=== PATIENT | female | born 1945 | race Hispanic/Latino ===

== ENCOUNTER 2017-12-15 06:09 | Observation (INO) | payer MEDICARE ==
[2017-12-10 12:57] VITALS: BP 149/74
[2017-12-10 13:14] LABS: BASOPHILS % (AUTO) 0.3 % (0.0-5.0); CREATININE 0.7 mg/dL (0.5-1.5); EOSINOPHILS % (AUTO) 1.6 % (0.0-8.0); HEMATOCRIT 41.9 % (36-48); LYMPHOCYTES % (AUTO) 41.9 % (21.0-51.0); MEAN CORPUSCULAR VOLUME 88.4 fL (79-99); MONOCYTES % (AUTO) 6.6 % (3.0-13.0); NEUTROPHILS % (AUTO) 49.6 % (40.0-77.0); PLATELET COUNT (AUTO) 348 K/uL (130-400); POTASSIUM 4.4 mmol/L (3.5-5.1); RED BLOOD CELL COUNT(AUTO) 4.74 MIL/uL (4.00-5.50); RED CELL DISTRIBUTION WIDTH 13.1 % (11.0-15.5); WHITE BLOOD COUNT (AUTO) 9.5 K/uL (4.8-10.8)
[2017-12-15] VITALS (23 sets, daily range): BP systolic 109–161; BP diastolic 60–97
[~2017-12-15] VITALS: Ht 152.4 cm; Wt 69.9 kg
[2017-12-15] MEDS: CEFAZOLIN SODIUM 1 GM VIAL IVP SCH ×2 (05:00→08:30)
[2017-12-15] MEDS ORDERED: MIDAZOLAM HCL 1 MG/ML 2ML VIAL ONE (06:28)
[2017-12-15] MEDS ORDERED: GLYCOPYRROLATE 0.2 MG/ML 5 ML VIAL ONE ×2 (06:28→10:08)
[2017-12-15] MEDS ORDERED: PROPOFOL 10 MG/ML 20ML VIAL IV ONE (06:28)
[2017-12-15] MEDS ORDERED: LIDOCAINE PF 2% 5ML ABBOJECT ONE (06:28)
[2017-12-15] MEDS ORDERED: DEXAMETHASONE SOD PHOSPHATE 10MG/ML 1ML VIAL ONE ×2 (06:28→10:09)
[2017-12-15] MEDS ORDERED: LACTATED RINGERS 1000ML 0 ML IV ONE (06:29)
[2017-12-15] MEDS ORDERED: FENTANYL CITRATE PF 50 MCG/1 ML 2ML VIAL ONE ×2 (06:29→09:02)
[2017-12-15] MEDS ORDERED: SODIUM CHLORIDE 0.9% 1000ML 1,000 ML IV ONE (06:30)
[2017-12-15] MEDS ORDERED: BUPIVACAINE/PF 0.25% 30ML VIAL IJ ONE (06:48)
[2017-12-15] MEDS ORDERED: DURAMORPH PF1 MG/ML 10ML AMP IV ONE (06:48)
[2017-12-15] MEDS ORDERED: EPINEPHRINE 1 MG/ML AMPULE ONE (06:48)
[2017-12-15] MEDS ORDERED: BACITRACIN 50,000 UNIT VIAL ONE (06:49)
[2017-12-15] MEDS ORDERED: THROMBIN-JMI 20000 UNIT KIT TP ONE (06:49)
[2017-12-15] MEDS ORDERED: PROP10TA10 PO (07:09)
[2017-12-15] MEDS ORDERED: JANUMET PO (07:09)
[2017-12-15] MEDS ORDERED: ROSU10TA PO (07:09)
[2017-12-15] MEDS ORDERED: SUCCINYLCHOLINE CHLORIDE 20 MG/ML 10 ML VIAL ONE (10:08)
[2017-12-15] MEDS ORDERED: ROCURONIUM BROMIDE 10MG/1ML 5ML VL ONE ×2 (10:08)
[2017-12-15] MEDS ORDERED: NEOSTIGMINE METHYLSULFATE 1MG/ML IV ONE (10:08)
[2017-12-15] MEDS ORDERED: ONDANSETRON HCL MDV 20ML 2 MG/ML VIAL ONE (10:09)
[2017-12-15] MEDS ORDERED: HYDROCODONE/ACETAMINOPHEN 5/325 MG TAB PO PRN (10:30)
[2017-12-15] MEDS ORDERED: MORPHINE SULFATE 2 MG/ML 1ML SYG IVP PRN (10:30)
[2017-12-15] MEDS: CEFAZOLIN 2GM / 50 ML 50 ML IV SCH ×2 (10:30→14:59)
[2017-12-15] MEDS ORDERED: SODIUM CHLORIDE 0.9% 10 ML VIAL IVP PRN (10:30)
[2017-12-15] MEDS ORDERED: PROMETHAZINE HCL 25 MG/ML 1ML AMPULE IM PRN (10:30)
[2017-12-15] MEDS: DEXAMETHASONE SOD PHOSPHATE 4 MG/ML 1ML VIAL IVP SCH ×3 (10:30→22:30)
[2017-12-15] MEDS ORDERED: NALOXONE HCL 0.4 MG/1 ML ML ONE (10:33)
[2017-12-15] MEDS ORDERED: MEPERIDINE-PF 25 MG/ML SYG ONE (11:06)
[2017-12-15] MEDS ORDERED: PHARMACY COMMUNICATION MISC SCH (11:45)
[2017-12-15] MEDS: LACTATED RINGERS 1000ML 1,000 ML IV SCH ×2 (12:31→20:51)
[2017-12-15] MEDS: PROPRANOLOL HCL 10 MG TAB PO SCH (20:48)
[2017-12-15] MEDS ORDERED: ATORVASTATIN CALCIUM 20 MG TABLET PO SCH (21:00)
[2017-12-15] MEDS ORDERED: JANUMET PO SCH ×2 (21:00)
[2017-12-16] VITALS: BP 120/65
[2017-12-16] MEDS: CEFAZOLIN SODIUM 1 GM VIAL IVP SCH (00:20)
[2017-12-16] MEDS: DEXAMETHASONE SOD PHOSPHATE 4 MG/ML 1ML VIAL IVP SCH (02:03)
[2017-12-16 04:00] VITALS: BP 124/58
[2017-12-16 08:10] VITALS: BP 122/57
[2017-12-16] MEDS: PROPRANOLOL HCL 10 MG TAB PO SCH (09:00)
== END 2017-12-16 11:01 | disposition home or self-care (01) ==
LOC: DAHIP 06:09 → INTOOBSV 06:09 → 4AH 11:16
PROVIDERS: ADMIT Neurological Surgery; ATTEND Neurological Surgery
PROC: 00NY0ZZ Release Lumbar Spinal Cord, Open Approach (ICD-10-PCS; principal; 2017-12-15 08:14)
DX: M48.061 Spinal stenosis, lumbar region without neurogenic claudication (principal); I10 Essential (primary) hypertension; E11.9 Type 2 diabetes mellitus without complications; Z79.899 Other long term (current) drug therapy
CPT/HCPCS: 36415; 63047; 63048; 71045; 72020; 80048; 82948 ×5; 85025; 96365; 96375; 96376; A4218; A4344; A6219; G0378 ×30; J0171; J0330; J0690 ×3; J1100 ×4; J2001; J2175; J2250; J2274; J2310; J2704; J2710; J3010 ×2; J3490 ×5; J7030; J7120

== ENCOUNTER → 2018-08-30 | Outpatient (CLI) | payer MEDICARE ==
[~2018-08-30] MED LIST: JANUMET PO; PROP10TA10 PO; ROSU10TA PO
== END | disposition home or self-care (01) ==
LOC: OIH 15:19
PROVIDERS: ATTEND Internal Medicine
DX: M47.896 Other spondylosis, lumbar region (principal); M48.07 Spinal stenosis, lumbosacral region
CPT/HCPCS: 72100

== ENCOUNTER → 2019-06-14 | Outpatient (CLI) | payer MEDICARE ==
[~2019-06-14] MED LIST changes: -ROSU10TA PO; +ROSU10TA22 PO
== END | disposition home or self-care (01) ==
LOC: OIH 15:24
PROVIDERS: ATTEND Internal Medicine
DX: J45.21 Mild intermittent asthma with (acute) exacerbation (principal)
CPT/HCPCS: 71046

== ENCOUNTER → 2019-09-20 | Outpatient (CLI) | payer MEDICARE | END | disposition home or self-care (01) | LOC: OIH 15:05 | PROVIDERS: ATTEND Internal Medicine | DX: M70.62 Trochanteric bursitis, left hip (principal) | CPT/HCPCS: 73502 ==

== ENCOUNTER → 2022-01-14 | Outpatient (CLI) | payer MEDICARE | END | disposition home or self-care (01) | LOC: OIH 15:23 | PROVIDERS: ATTEND Internal Medicine | DX: M25.761 Osteophyte, right knee (principal); M25.762 Osteophyte, left knee | CPT/HCPCS: 73521 ==

== ENCOUNTER → 2023-03-08 | Outpatient (CLI) | payer MEDICARE ==
[~2023-03-08] MED LIST changes: +EMPA25TA PO; +GLIM4TAB36 PO; -ROSU10TA22 PO; +TRAM50TA4 PO
== END | disposition home or self-care (01) ==
LOC: RAH 11:13
PROVIDERS: ATTEND Internal Medicine
DX: J20.9 Acute bronchitis, unspecified (principal); M47.815 Spondylosis without myelopathy or radiculopathy, thoracolumbar region
CPT/HCPCS: 71046